=== PATIENT | male | born 1940 | race Caucasian/White ===

== ENCOUNTER 2017-05-10 10:12 | Emergency (ER) | payer OTHER ==
--- NOTE | 2017-05-10 10:17 | PDOC ---
History of Present Illness - General Chief Complaint: Cold Symptoms Stated Complaint: COUGH Time Seen by Provider: 05/10/17 10:17 - History of Present Illness Initial Comments: 05/10/17 10:23 Chief complaint: Cough History of present illness: Patient has cough for 2 weeks, clear to yellowish phlegm, no shortness of breath or chest pain, no fever or chills. Prescribed Tamiflu by his primary physician, took 3 doses, Saturday and Saturday, did not take any yesterday or today. Taking Mucinex and [id number] cough preparations with partial relief. Review of systems: As above. Otherwise negative Past medical history: No COPD or other lung disease. No prior pneumonia. Social history: Reviewed and noncontributory Family history: Reviewed and noncontributory Physical exam: Alert and oriented well-developed well-nourished no acute distress cheerful and cooperative Afebrile, vital signs normal including respiratory rate and oxygen saturation HEENT clear Neck supple without bruit mass or nodes Chest exam reveals occasional end expiratory wheezes, posterior lung [place], lower. No rales. No splinting. CV S1 and S2 normal without murmur rub or gallop pulses full and symmetric no JVD or edema no bruits Abdomen benign Neurological intact Extremities no CCE Skin clear, no rash, adequate turgor and wet mucous membranes Impression: Two-week history of cough, probably postviral syndrome, rule out pneumonia Chest x-ray and further management depending on results. Past History - Past Medical History Allergies/Adverse Reactions: Allergies Allergy/AdvReac Type Severity Reaction Status Date / Time No Known Allergies Allergy Verified 05/10/17 10:12 Home Medications: Ambulatory Orders Multivitamin [Multivitamins] 1 each PO DAILY 06/16/13 Cholecalciferol (Vitamin D3) [Vitamin D3] 2,000 unit PO DAILY 09/07/15 [place]-3 Fatty Acids/Fish Oil [Fish Oil 1,000 mg Softgel] 1 each PO DAILY Guaifenesin AC [Robitussin-AC] 1 - 2 tsp PO Q4HWA PRN #120 ml MDD 8 05/10/17 Anemia: No Asthma: No Cancer: No Cardiac Disorders: No CVA: No COPD: No CHF: No Dementia: No Diabetes: No GI Disorders: No Disorders: No HTN: No Hypercholesterolemia: No Liver Disease: No Seizures: No Thyroid Disease: No - Surgical History Abdominal Surgery: No Appendectomy: Yes (COLONOSCOPY-2009) Cardiac Surgery: No Cholecystectomy: No Lung Surgery: No Neurologic Surgery: No Orthopedic Surgery: Yes (SPINAL FUSION-2013) - Suicide/Smoking/Psychosocial Hx Smoking History: Never smoked Have you smoked in the past 12 months: No Number of Cigarettes Smoked Daily: 0 Hx Alcohol Use: No Drug/Substance Use Hx: No Substance Use Type: None Hx Substance Use Treatment: No Medical Decision Making - Medical Decision Making 05/10/17 11:04 Chest x-ray: Clear. No sign of pneumonia. Patient's residual symptoms are most likely due to airway inflammation and mucus production. Instructed to discontinue Mucinex and Sudafed. Prescription cough suppressant given in-place of these medications. Instructed to finish Tamiflu as directed by his primary physician, 2 more doses needed, today and tomorrow Return to ER if there is chest pain, shortness of breath, or fever, otherwise follow-up with primary physician as directed. Fully ambulatory and in no pain or other distress upon discharge, respiratory or otherwise, to follow-up as recommended *DC/Admit/Observation/Transfer Diagnosis at time of Disposition: Viral bronchitis - Discharge Dispostion Disposition: HOME Condition at time of disposition: Stable Admit: No - Prescriptions Prescriptions: Guaifenesin AC [Robitussin-AC] 1 - 2 tsp PO Q4HWA PRN #120 ml MDD 8 PRN Reason: Cough - Referrals - Patient Instructions Printed Discharge Instructions: DI for Acute Bronchitis, DI for Viral Upper Respiratory Infection -- Adult Additional Instructions: See primary physician 2-3 days. Cough medication as directed. Return to ER if there is fever, chest pain, or shortness of breath. - Post Discharge Activity
[2017-05-10 10:22] VITALS: BP 127/81; PULSE 80; TEMP 98.8; BMI 26.6
== END 2017-05-10 11:15 | disposition home or self-care (01) ==
LOC: FER 10:12
DX: J20.8 Acute bronchitis due to other specified organisms (principal); B97.89 Other viral agents as the cause of diseases classified elsewhere
CPT/HCPCS: 71046-TC-FY; 99281-25

== ENCOUNTER 2020-03-28 13:25 | Emergency (ER) | payer OTHER ==
[2020-03-28 13:42] VITALS: BP 136/88; PULSE 70; TEMP 98; BMI 25.8
[2020-04-15] MEDS ORDERED: LORazepam 2 MG/ML SDV VIAL IVPUSH ONE (18:15)
== END 2020-03-28 14:30 | disposition home or self-care (01) ==
LOC: FER 13:25
DX: L98.8 Other specified disorders of the skin and subcutaneous tissue (principal)
CPT/HCPCS: 99282-25

== ENCOUNTER 2020-07-04 09:49 | Emergency (ER) | payer OTHER ==
[2020-07-04 09:56] VITALS: BP 152/73; PULSE 65; TEMP 97.7; BMI 25.7
[2020-07-04] MEDS ORDERED: FLUTICASONE PROP 0.05% 16 GM NASAL SPRAY NS ONE (09:59)
== END 2020-07-04 10:15 | disposition home or self-care (01) ==
LOC: FER 09:49
DX: J34.89 Other specified disorders of nose and nasal sinuses (principal)
CPT/HCPCS: 99283-25

== ENCOUNTER 2022-07-30 08:13 | Observation (INO) | payer OTHER ==
[2022-07-30] MEDS ORDERED: MECLIZINE HCL 25 MG TABLET (FP) PO ONE (09:07)
[2022-07-30] MEDS ORDERED: MECLIZINE HCL 25 MG TABLET (FP) ONE (09:15)
[2022-07-30 10:03] LABS: BASO % 1.4 % (0-2.0); EOS % 3.7 % (0-4.5); HEMOGLOBIN 14.1 GM/dL (11.7-16.9); MCH 30.4 pg (25.7-33.7); MCHC 35.2 g/dl (32.0-35.9); MEAN CELL VOLUME 86.4 fl (80-96); MEAN PLT VOLUME 7.3 fl (7.5-11.1); MONO % 9.9 % (3.8-10.2); PLATELET COUNT 185 10^3/uL (134-434); RBC 4.63 M/mm3 (4.00-5.60); WHITE BLOOD COUNT 5.7 K/mm3 (4.0-10.0)
[2022-07-30 10:22] LABS: ALBUMIN 3.4 g/dl (3.4-5.0); BLOOD UREA NITROGEN 15.8 mg/dL (7-18); CALCIUM 8.8 mg/dL (8.5-10.1)
[2022-07-30 10:23] LABS: MAGNESIUM 1.7 mg/dL (1.8-2.4)
[2022-07-30 10:25] LABS: CREATININE 0.8 mg/dL (0.55-1.3)
[2022-07-30 10:27] LABS: BILIRUBIN,TOTAL 0.4 mg/dL (0.2-1); TOT PROT 6.9 g/dl (6.4-8.2)
[2022-07-30] MEDS ORDERED: LACTATED RINGERS SOLUTION 1000 ML INFUS.BAG IV ONE (10:41)
[2022-07-30] MEDS ORDERED: MAGNESIUM SULF 50% (8.12 MEQ/2 ML-1 GM VIAL) IVPB ONE (14:02)
[2022-07-30] MEDS ORDERED: ACETAMINOPHEN 325 MG TABLET (FP) PO PRN (15:36)
[2022-07-30] MEDS ORDERED: MAGNESIUM 1GM/D5W - 1 GM/100 ML IVPB IVPB ONE (16:11)
[2022-07-30] MEDS: MECLIZINE HCL 25 MG TABLET (FP) PO SCH (18:50)
[2022-07-30 20:22] VITALS: BMI 27.8
[2022-07-30] MEDS: HEPARIN NA (PORCINE) 5,000 UNITS/ML 1ML VIAL SQ SCH (21:51)
[2022-07-31] MEDS: MECLIZINE HCL 25 MG TABLET (FP) PO SCH ×4 (00:30→17:17)
[2022-07-31] MEDS: HEPARIN NA (PORCINE) 5,000 UNITS/ML 1ML VIAL SQ SCH ×2 (09:36→21:14)
[2022-08-01] MEDS: MECLIZINE HCL 25 MG TABLET (FP) PO SCH ×4 (00:07→17:09)
[2022-08-01 07:29] LABS: BASO % 1.3 % (0-2.0); EOS % 3.2 % (0-4.5); HEMATOCRIT 38.8 % (35.4-49); HEMOGLOBIN 13.6 GM/dL (11.7-16.9); LYMPH % 33.9 % (8-40); MCH 30.3 pg (25.7-33.7); MCHC 35.1 g/dl (32.0-35.9); MEAN CELL VOLUME 86.4 fl (80-96); MEAN PLT VOLUME 7.4 fl (7.5-11.1); MONO % 11.2 % (3.8-10.2); NEUT % 50.4 % (42.8-82.8); PLATELET COUNT 172 10^3/uL (134-434); RBC 4.49 M/mm3 (4.00-5.60); RDW 13.9 % (11.9-15.9); WHITE BLOOD COUNT 6.7 K/mm3 (4.0-10.0)
[2022-08-01 07:54] LABS: ALBUMIN 3.2 g/dl (3.4-5.0); BLOOD UREA NITROGEN 15.8 mg/dL (7-18)
[2022-08-01 07:57] LABS: CREATININE 0.8 mg/dL (0.55-1.3)
[2022-08-01 07:58] LABS: BILIRUBIN,TOTAL 0.6 mg/dL (0.2-1); TOT PROT 6.7 g/dl (6.4-8.2)
[2022-08-01 08:09] VITALS: RESP 18
[2022-08-01] MEDS: HEPARIN NA (PORCINE) 5,000 UNITS/ML 1ML VIAL SQ SCH (10:11)
[2022-08-01 15:41] VITALS: BP 98/52; PULSE 63; TEMP 98.8
== END 2022-08-01 17:43 | disposition home or self-care (01) ==
LOC: JER 08:13 → UNDOADMOB 15:05 → JERBED 15:05 → INTOOBSV 15:05 → JERBED 15:31 → J4W 17:54
PROVIDERS: ADMIT Internal Medicine; ATTEND Internal Medicine
PROC: 3E023GC Introduction of Other Therapeutic Substance into Muscle, Percutaneous Approach (ICD-10-PCS; principal; 2022-07-30)
PROC: 3E033GC Introduction of Other Therapeutic Substance into Peripheral Vein, Percutaneous Approach (ICD-10-PCS; 2022-07-30)
PROC: 3E0337Z Introduction of Electrolytic and Water Balance Substance into Peripheral Vein, Percutaneous Approach (ICD-10-PCS; 2022-07-30)
DX: R42 Dizziness and giddiness (principal)
CPT/HCPCS: 0241U-QW; 36415; 70450-TC; 70496-TC; 70551-TC; 71046-TC-FY; 80053; 80061; 82607; 83735; 84439; 84443; 84484; 85025; 93005; 93010; 93306-TC; 96361; 96372; 96374; 97116-GP; 97162-GP; 99285-25; G0378; J1644; Q9967

== ENCOUNTER 2023-07-27 13:06 | Emergency (ER) | payer OTHER ==
[2023-07-27 13:42] VITALS: BP 149/87; PULSE 76; RESP 18; TEMP 97.9; BMI 26.6
== END 2023-07-27 13:36 | disposition home or self-care (01) ==
LOC: FER 13:06
DX: J34.89 Other specified disorders of nose and nasal sinuses (principal)
CPT/HCPCS: 99283-25